=== PATIENT | male | born 1950 | race Caucasian/White ===

== ENCOUNTER → 2024-03-25 07:21 | Outpatient (REF) | payer MEDICARE, OTHER, SELFPAY | LOC: HWRAD 07:21 | PROVIDERS: ATTENDING PHYSICIAN Internal Medicine | DX: R41.3 Other amnesia (principal) | CPT/HCPCS: 70450 ==

== ENCOUNTER → 2025-07-24 11:41 | Outpatient (REF) | payer MEDICARE, OTHER, SELFPAY | LOC: PAVMRI 11:41 | PROVIDERS: ATTENDING PHYSICIAN Internal Medicine | DX: E27.8 Other specified disorders of adrenal gland (principal); R93.89 Abnormal findings on diagnostic imaging of other specified body structures | CPT/HCPCS: 74183; A9575 ==